=== PATIENT | male | born 2000 | race Caucasian/White ===

== ENCOUNTER 2021-03-22 18:23 | Emergency (ER) | payer SELFPAY ==
[2021-03-22 18:41] VITALS: BP 140/80; PULSE 60; RESP 18; TEMP 37; O2SAT 98; BMI 29.5
== END 2021-03-22 20:04 | disposition left against medical advice (07) ==
PROVIDERS: Emergency Provider Emergency Medicine
DX: R91.8 Other nonspecific abnormal finding of lung field (principal); I26.99 Other pulmonary embolism without acute cor pulmonale
CPT/HCPCS: 99282; 99283